=== PATIENT | male | born 1970 | race African-American/Black ===

== ENCOUNTER 2021-08-10 08:40 | Emergency (ER) | payer OTHER ==
[~2021-08-10] VITALS: Ht 157.5 cm; Wt 50.0 kg
[2021-08-10 08:57] VITALS: BP 155/79
== END 2021-08-10 09:37 ==
LOC: ER 08:41
DX: S01.112A Laceration without foreign body of left eyelid and periocular area, initial encounter (principal); F15.129 Other stimulant abuse with intoxication, unspecified; F12.90 Cannabis use, unspecified, uncomplicated; Y04.0XXA Assault by unarmed brawl or fight, initial encounter; Y93.89 Activity, other specified; Y92.89 Other specified places as the place of occurrence of the external cause; Y99.8 Other external cause status
CPT/HCPCS: 12011; 99283